=== PATIENT | female | born 1990 | race Caucasian/White ===

== ENCOUNTER 2021-03-07 21:35 | Emergency (ER) | payer OTHER, MEDICAID ==
[~2021-03-07] VITALS: Ht 152.4 cm; Wt 61.2 kg
[~2021-03-07 21:35] MED LIST: BACTRIM DS TAB1 EACH PO; NOHOMEMEDICATIONS; PRENA1 SOFTGEL1 EACH; PROMETHAZINE HC25 M1 PO; ZOFRAN ODT4 MG PO
[2021-03-07 22:05] LABS: ABSOLUTE BASOPHILS 0.1 thou/uL (0.0-0.2); ABSOLUTE EOSINOPHILS 0.8 thou/uL (0.0-0.7); ABSOLUTE LYMPHOCYTES 3.5 thou/uL (0.8-5.3); ABSOLUTE MONOCYTES 0.7 thou/uL (0.0-1.2); ABSOLUTE NEUTROPHILS 4.5 thou/uL (1.6-8.1); BASOPHILS 1.2 %; EOSINOPHILS 8.3 %; HEMATOCRIT 38.7 % (37.0-47.0); HEMOGLOBIN 13.3 gm/dL (12.0-15.0); LYMPHOCYTES 36.2 %; MCH 32.8 pg (26.0-34.0); MCHC 34.4 g/dL (28.0-37.0); MCV 95.4 fL (80.0-100.0); MONOCYTES 7.8 %; MPV 8.8 fl. (7.2-11.1); NUCLEATED RBCS 0 /100WBC; PLATELET COUNT* 275 thou/uL (150-400); POLYS 46.5 %; RBC 4.06 mil/uL (4.20-5.00); WBC 9.6 thou/uL (4.0-11.0)
[2021-03-07 22:19] LABS: BUN 11 mg/dL (7-18); CALCIUM 8.1 mg/dL (8.5-10.1); CHLORIDE 99 mmol/L (98-107); CO2 27 mmol/L (21-32); CREATININE 0.7 mg/dL (0.6-1.3); GLUCOSE 106 mg/dL (70-99); POTASSIUM 3.2 mmol/L (3.5-5.1)
[2021-03-07 22:23] LABS: ALBUMIN 4.1 g/dL (3.4-5.0); ALKALINE PHOSPHATASE 87 U/L (46-116); ANION GAP 16 mmol/L (7-16); LIPASE 76 U/L (73-393); MAGNESIUM 2.2 mg/dL (1.8-2.4); SGOT 21 U/L (15-37); SGPT 19 U/L (30-65); SODIUM 142 mmol/L (136-145); TOTAL BILIRUBIN < 0.1 mg/dL (<0.1-1.0); TOTAL PROTEIN 8.2 g/dL (6.4-8.2)
[2021-03-07] MEDS ORDERED: ZOFRAN ODT4 MG PO (23:30)
[2021-03-07 23:56] VITALS: BP 121/79
== END 2021-03-07 23:57 | disposition home or self-care (01) ==
LOC: M.ERS 21:35
PROVIDERS: Emergency Medicine
DX: F10.920 Alcohol use, unspecified with intoxication, uncomplicated (principal); R11.10 Vomiting, unspecified; Z91.013 Allergy to seafood; Y90.8 Blood alcohol level of 240 mg/100 ml or more